=== PATIENT | male | born 2005 | race Two or more races ===

== ENCOUNTER 2025-01-17 23:29 | Emergency (ER) | payer MEDICAID, SELFPAY ==
[2025-01-17 23:36] VITALS: PULSE 110; RESP 30; O2SAT 100
[2025-01-17 23:48] VITALS: BP 153/76; PULSE 153; RESP 20; TEMP 37.2; O2SAT 100; BMI 34.0
[2025-01-18 00:16] VITALS: PULSE 85; RESP 18
--- NOTE | 2025-01-18 05:09 | PD.EDANX ---
ED Anxiety RME/HPI General Chief Complaint: Anxiety Stated Complaint: PANIC ATTACK Time Seen by Provider: 01/18/25 00:29 Arrival date/time: 01/17/25 23:29 19M with no significant PMH presents to ED with panic/anxiety attack because his significant other broke up with him. Patient denies SI/HI. Limitations: no limitations Related Data Previous Rx's ?Medication ?Instructions ?Recorded ibuprofen 800 mg tablet 800 mg PO TID PRN pain #30 tabs 06/25/21 Allergies Allergy/AdvReac Type Severity Reaction Status Date / Time No Known Allergies Allergy Verified 01/17/25 23:38 Review of Systems Review of Systems Systems Reviewed: All systems reviewed, normal except as documented Constitutional Constitutional: Reports system reviewed and no additional complaints, except as documented, Denies fever(s) and Denies headache(s) ENT Ears, Nose, Mouth, and Throat: Denies disequilibrium and Denies headache(s) Cardiovascular Cardiovascular: Reports system reviewed and no additional complaints, except as documented, Denies chest pain and Denies dyspnea Respiratory Respiratory: Reports system reviewed and no additional complaints, except as documented, Denies cough and Denies dyspnea Gastrointestinal Gastrointestinal: Reports system reviewed and no additional complaints, except as documented, Denies abdominal pain, Denies nausea and Denies vomiting Neurologic Neurologic: Reports system reviewed and no additional complaints, except as documented, Denies confusion, Denies disequilibrium and Denies headache(s) Psychiatric Psychiatric: Reports as per HPI, Reports anxiety, Denies confusion and Reports panic attacks Past Medical History Past Medical History CARDIAC: Negative Cardiac Disorders or Congestive Heart Failure RESPIRATORY: Negative Chronic Obstructive Pulmonary Disease (COPD) or Asthma GENITOURINARY: Negative Renal Disease ENDOCRINE: Negative Diabetes Mellitus Type 1 or Diabetes Mellitus Type 2 HEMATOLOGIC: Negative Sickle Cell Disease Social History SMOKING STATUS: Never smoker SUBSTANCE USE: does not use ED Exam General Limitations: Present no limitations General appearance: Present alert and in no apparent distress Head Head exam: Present atraumatic Eye Eye exam: Present normal appearance, PERRL and EOMI ENT ENT exam: Present normal exam, normal oropharynx and mucous membranes moist Neck Neck exam: Present normal inspection, full ROM and trachea midline Chest Chest inspection: Present normal inspection and symmetric chest wall rise Respiratory Respiratory exam: Present normal lung sounds bilaterally Cardiovascular Cardiovascular exam: Present regular rate, normal rhythm and normal heart sounds Abdominal Exam Abdominal exam: Present soft and normal bowel sounds Extremities Exam Extremities exam: Present normal inspection and full ROM Back Exam Back exam: Present normal inspection and full ROM Neurological Exam Neurological exam: Present alert, oriented X3 and CN II-XII intact Psychiatric Psychiatric exam: Present normal affect and normal mood Skin Skin exam: Present warm, dry, intact and normal color Course Quality Measures none Vital Signs Vital signs: Vital Signs Temperature 98.9 F 01/17/25 23:48 Pulse Rate 153 H 01/17/25 23:48 Respiratory Rate 20 01/17/25 23:48 Blood Pressure 153/76 H 01/17/25 23:48 Pulse Oximetry (%) 100 01/17/25 23:48 Oxygen Delivery Method Room Air 01/17/25 23:48 Anxiety MDM Narrative MDM Narrative: 19M with no significant PMH presents to ED with panic/anxiety attack because his significant other broke up with him. Patient denies SI/HI. Physical exam reveals RRR. Patient is afebrile, calm, and alert. Patient declines meds and wants to go home. Patient data External records reviewed:: [facility] previous records Clinical information provided by:: patient Social determinants that could affect healthcare access:: none Patient has the following chronic illnesses:: none How is presenting disease/condition affected by chronic disease/condition?: no chronic disease Evaluation data The following diagnostics were reviewed and interpreted by me:: other (specify) (none) Lab and/or radiology exams considered but not ordered:: not ordered Interpretation Summary: n/a Medications / Prescriptions Medications or Prescriptions considered but not ordered:: not ordered Medication administrations:: n/a Consultations Consultation(s) initiated? (list below): No Diagnosis Differential diagnosis anxiety: hyperventilation, panic disorder, acute anxiety and other (stress reaction) Most likely diagnosis given after review of the tests above:: stress reaction Admission Indicated Admission indicated?: not indicated Admission Request Was there a request for admission?: No Disposition Plan Disposition Plan: Discharge Discharge Attestation Discharge Attestation: The patient and all family members were given an opportunity to ask questions and understood the discharge instructions. Discharge instructions specifically effects, indications for sooner follow up or return to the emergency department, and the expected course of current diagnosis. Patient condition: Stable Discharge Plan Plan Patient Disposition: HOME (Self Care) Disposition Comment: Stable Prescriptions/Referrals Prescriptions/Med Rec: No Action ibuprofen 800 mg tablet 800 mg PO TID PRN (Reason: pain) Qty: 30 0RF Problem List Clinical Impression: Stress reaction Patient/Caregiver Discharge Instructions Education Materials: Your Body's Response to Anxiety Additional Instructions: Please follow-up with PCP within 24-48 hours and return immediately if symptoms worsen. Print Language: Spanish Stand Alone Forms: Patient Portal Info Letter PA/SURGICAL CODER Supervising Physician PA/SURGICAL CODER Supervising Physician: Dr. Hughes
== END 2025-01-18 01:26 | disposition home or self-care (01) ==
LOC: SERX 01-18 00:40
PROVIDERS: Emergency Provider Emergency Medicine; PCP Family Medicine
DX: F43.0 Acute stress reaction (principal)
CPT/HCPCS: 99281

== ENCOUNTER 2025-02-07 19:43 | Emergency (ER) | payer MEDICAID, SELFPAY ==
[2025-02-07 19:44] VITALS: BMI 31.6
--- NOTE | 2025-02-07 19:52 | XR_ITS ---
Examination: Knee, left , 3 views Technique: Knee AP, lateral, oblique 3 views Date and time of exam: February 07, 20252001 hrs. Indications: Football injury today, knee pain. Findings: Lateral patellar dislocation No definite acute fracture Moderate knee effusion Impression: Lateral patellar dislocation
[2025-02-07 20:15] VITALS: BP 132/85; PULSE 103; RESP 20; TEMP 36.7; O2SAT 97
--- NOTE | 2025-02-07 20:37 | XR_ITS ---
Examination: Knee, left , 3 views Technique: Knee AP, lateral, oblique 3 views Date and time of exam: February 07, [id number] hrs. Indications: Patellar dislocation on films February 07, 20252001 hrs. Findings: Persistent lateral subluxation of the patella No fracture Impression: Recommend axial view of the knee to confirm persistent lateral subluxation of the patella
[2025-02-07] MEDS: DIPHTH,PERTUSS(ACELL),TET VAC 0.5 ML SYR- ADULT IMi (20:56)
--- NOTE | 2025-02-08 01:41 | EDNOTE_ITS ---
Lower Extremity Injury RME/HPI General Chief Complaint: Extremity Injury, Lower Stated Complaint: LEFT KNEE PAIN WHILE PLAYING FOOTBALL Time Seen by Provider: 02/07/25 20:12 Arrival date/time: 02/07/25 19:43 19M with no significant PMH presents to ED with L knee pain after fall during football. Patient has not had a tetanus shot in the past 5 years. Limitations: no limitations Related Data Previous Rx's ?Medication ?Instructions ?Recorded ibuprofen 800 mg tablet 800 mg PO TID PRN pain #30 t abs 06/25/21 Allergies Allergy/AdvReac Type Severity Reaction Status Date / Time No Known Allergies Allergy Verified 01/17/25 23:38 Review of Systems Review of Systems Systems Reviewed: All systems reviewed, normal except as documented Constitutional Constitutional: Reports system reviewed and no additional complaints, except as documented, Denies fever(s) and Denies headache(s) ENT Ears, Nose, Mouth, and Throat: Denies disequilibrium and Denies headache(s) Cardiovascular Cardiovascular: Reports system reviewed and no additional complaints, except as documented, Denies chest pain and Denies dyspnea Respiratory Respiratory: Reports system reviewed and no additional complaints, except as documented, Denies cough and Denies dyspnea Gastrointestinal Gastrointestinal: Reports system reviewed and no additional complaints, except as documented, Denies abdominal pain, Denies nausea and Denies vomiting Musculoskeletal Musculoskeletal: Reports as per HPI and Reports arthralgias Integumentary/Breasts Skin/Breast: Reports as per HPI and Reports skin pain Neurologic Neurologic: Reports system reviewed and no additional complaints, except as documented, Denies confusion, Denies disequilibrium and Denies headache(s) Psychiatric Psychiatric: Denies confusion Past Medical History Past Medical History CARDIAC: Negative Cardiac Disorders or Congestive Heart Failure RESPIRATORY: Negative Chronic Obstructive Pulmonary Disease (COPD) or Asthma GENITOURINARY: Negative Renal Disease ENDOCRINE: Negative Diabetes Mellitus Type 1 or Diabetes Mellitus Type 2 HEMATOLOGIC: Negative Sickle Cell Disease Social History SMOKING STATUS: Never smoker SUBSTANCE USE: does not use ED Exam General Limitations: Present no limitations General appearance: Present alert and in no apparent distress Head Head exam: Present atraumatic Eye Eye exam: Present normal appearance, PERRL and EOMI ENT ENT exam: Present normal exam, normal oropharynx and mucous membranes moist Neck Neck exam: Present normal inspection, full ROM and trachea midline Chest Chest inspection: Present normal inspection and symmetric chest wall rise Respiratory Respiratory exam: Present normal lung sounds bilaterally Cardiovascular Cardiovascular exam: Present regular rate, normal rhythm and normal heart sounds Abdominal Exam Abdominal exam: Present soft and normal bowel sounds Expanded Upper Extremity Exam Elbow exam: Present full ROM and abrasion (L) Expanded Lower Extremity Exam Knee exam: Present tenderness (L) Back Exam Back exam: Present normal inspection and full ROM Neurological Exam Neurological exam: Present alert, oriented X3 and CN II-XII intact Psychiatric Psychiatric exam: Present normal affect and normal mood Skin Skin exam: Present warm, dry, intact and normal color Course Quality Measures none Orders Category Date Time Status Apply knee immobilizer NOW Care 02/07/25 21:31 Completed Crutches .NOW Care 02/07/25 20:13 Completed Wound Care NOW Care 02/07/25 20:46 Completed XR knee LT 3V Stat Exams 02/07/25 19:52 Completed XR knee LT 3V Stat Exams 02/07/25 20:37 Completed TET,DIP/PERT AC (Adult)-Tdap [Boostrix Adult (Tdap) Med 02/07/25 20:46 Discontinued Vacc] 0.5 ml IMI .ONCE ONE Vital Signs Vital signs: Vital Signs Temperature 98.1 F 02/07/25 20:15 Pulse Rate 103 H 02/07/25 20:15 Respiratory Rate 20 02/07/25 20:15 Blood Pressure 132/85 H 02/07/25 20:15 Pulse Oximetry (%) 97 02/07/25 20:15 Oxygen Delivery Method Room Air 02/07/25 20:15 O2 at 97% on RA and WNLs Extremity Injury, Lower MDM Narrative MDM Narrative:: 19M with no significant PMH presents to ED with L knee pain after fall during football. Separately, patient has a L elbow skin abrasion. Patient has not had a tetanus shot in the past 5 years. Physical exam reveals mild L knee tenderness. ROM somewhat limited. Mild skin abrasion on L elbow. No tenderness. ROM intact. Patient is afebrile, calm, and alert. XR reveals lateral patella dislocation. Reduction done. Repeat XR shows only subluxation. Patient states knee cap keeps popping in out and out. Given knee immobilizer, crutches, and corporate counsel. Wound cleaned/irrigated and bandaged. Tdap given. Patient data External records reviewed:: [facility] previous records Clinical information provided by:: patient Social determinants that could affect healthcare access:: none Patient has the following chronic illnesses:: none How is presenting disease/condition affected by chronic disease/condition?: no chronic disease Evaluation data The following diagnostics were reviewed and interpreted by me:: radiology exam(s) Lab and/or radiology exams considered but not ordered:: ordered Interpretation Summary: above Medications / Prescriptions Medications or Prescriptions considered but not ordered:: ordered Medication administrations:: Medication Administration History Discontinued Medications Diphtheria/Tetanus/Acell Pertussis (Diphth,Pertuss(Acell),Tet Vac 0.5 Ml Syr- Adult) 0.5 ml IMi .ONCE ONE Stop: 02/07/25 20:47 Last Admin: 02/07/25 20:56 Dose: 0.5 ml Documented By: KF above Consultations Consultation(s) initiated? (list below): No Diagnosis Extremity Injury, Lower Differential Diagnosis: ankle sprain and strain, acute internal derangement of knee, fracture of femur, fracture of hip, puncture wound of foot, fracture of toe, ankle fracture and other (skin abrasion) Most likely diagnosis given after review of the tests above:: skin abrasion internal derangement of knee Admission Indicated Admission indicated?: not indicated Admission Request Was there a request for admission?: No Disposition Plan Disposition Plan: Discharge Discharge Attestation Discharge Attestation: The patient and all family members were given an opportunity to ask questions and understood the discharge instructions. Discharge instructions specifically effects, indications for sooner follow up or return to the emergency department, and the expected course of current diagnosis. Patient condition: Stable Discharge Plan Plan Patient Disposition: HOME (Self Care) Disposition Comment: Stable Prescriptions/Referrals Prescriptions/Med Rec: No Action ibuprofen 800 mg tablet 800 mg PO TID PRN (Reason: pain) Qty: 30 0RF Referrals: Catarino Farias MD [Primary Care Provider] - In 1 week Problem List Clinical Impression: Acute internal derangement of knee, Abrasion of skin Patient/Caregiver Discharge Instructions Education Materials: How Your Knee Works, ED Abrasions Additional Instructions: Please follow-up with PCP within 24-48 hours and return immediately if symptoms worsen. If problem persists, recommend outpatient PT and/or MRI follow-up. In the meantime, rest, use ice/heat, and/or compression. Print Language: Estonian Stand Alone Forms: Patient Portal Info Letter GREG/LIZA Supervising Physician GREG/LIZA Supervising Physician: Dr. Finn
== END 2025-02-07 21:42 | disposition home or self-care (01) ==
PROVIDERS: Emergency Provider Emergency Medicine; PCP Family Medicine
DX: S83.015A Lateral dislocation of left patella, initial encounter (principal); S50.312A Abrasion of left elbow, initial encounter; Z23 Encounter for immunization; W19.XXXA Unspecified fall, initial encounter; Y93.61 Activity, american tackle football
CPT/HCPCS: 27560; 73562; 90471; 90715; 99283

== ENCOUNTER 2025-07-10 02:47 | Emergency (ER) | payer MEDICAID, SELFPAY ==
[2025-07-10 02:47] VITALS: BP 115/66; PULSE 70; RESP 18; TEMP 36.6; O2SAT 99
--- NOTE | 2025-07-10 03:00 | XR_ITS ---
Examination: CT brain head without contrast. 2-D sagittal coronal reconstructions Date and time of exam:July 10, 2025, 0425 hrs. Indications: Severe headache beginning yesterday. CTDI: vol (mGy):57.2 DLP: (mGycm):1213. Technique: Multiple CT axial sections of the brain have been obtained, 5 mm slice thickness. Contrast has not been administered. 2-D sagittal, coronal reconstructions have been obtained Low dose protocols were performed. One or more of the following dose reduction techniques were used; automated exposure control, adjustment of the mA and/or KV according to patient size, use of iterative reconstruction technique. Findings: No significant ventricular enlargement. Intra-axial or extra-axial hemorrhage density is not seen. No mass effect or midline shift Basal cisterns are not remarkable. Fourth ventricle is midline. Cranial vault intact. Impression: Negative for acute hemorrhage, mass effect or midline shift Advise clinical correlation and follow-up accordingly.
--- NOTE | 2025-07-10 03:00 | EDNOTE_ITS ---
ED Headache RME/HPI General Chief Complaint: Headache Stated Complaint: headache Time Seen by Provider: 07/10/25 03:27 Arrival date/time: 07/10/25 02:47 RME / HPI RME / HPI Narrative: See [facility] for Dr. Finn's HPI documentation. Related Data Previous Rx's ?Medication ?Instructions ?Recorded ibuprofen 800 mg tablet 800 mg PO TID PRN pain #30 t abs 06/25/21 acetaminophen 300 mg-codeine 30 mg 2 tab PO Q8H PRN pa in #10 tabs 07/10/25 tablet Allergies Allergy/AdvReac Type Severity Reaction Status Date / Time No Known Allergies Allergy Verified 01/17/25 23:38 Review of Systems Review of Systems Systems Reviewed: All systems reviewed, normal except as documented Past Medical History Past Medical History CARDIAC: Negative Cardiac Disorders or Congestive Heart Failure RESPIRATORY: Negative Chronic Obstructive Pulmonary Disease (COPD) or Asthma GENITOURINARY: Negative Renal Disease ENDOCRINE: Negative Diabetes Mellitus Type 1 or Diabetes Mellitus Type 2 HEMATOLOGIC: Negative Sickle Cell Disease Social History SMOKING STATUS: Former smoker SUBSTANCE USE: does not use ED Exam Narrative Physical exam: See [facility] for Dr. Finn's physical exam documentation. Course Quality Measures none Orders Category Date Time Status CT head/brain wo con Stat Exams 07/10/25 03:00 Taken ACETAMINOPHEN w/COD 300-30 [Tylenol w/Cod #3] Med 07/10/25 03:59 Discontinued 2 tab PO X1 ONE Vital Signs Vital signs: Vital Signs Temperature 97.8 F 07/10/25 02:47 Pulse Rate 70 07/10/25 02:47 Respiratory Rate 18 07/10/25 02:47 Blood Pressure 115/66 07/10/25 02:47 Pulse Oximetry (%) 99 07/10/25 02:47 Oxygen Delivery Method Room Air 07/10/25 02:47 Headache [facility] Narrative [facility] Narrative:: This section includes all my notes and documentations, including HPI, PE, and ED course. Marcos Finn MD HPI: 19yo male here with a headache for the last 24 hours. With right eye heaviness. Patient took Ibuprofen 800mg without any alleviation of symptoms. No nausea, vomiting, or photophobia. No other complaints reported. ROS: All negative except as documented in HPI. Physical Exam: General: Alert and oriented. No acute distress when remaining still. Eyes: Conjunctivae and lids clear. PERRL. EOMI. ENT: No nasal congestion. Pharynx normal. TM normal bilaterally. Neck: Supple. Heart: RRR. Lungs: No respiratory distress. Good air movement. No rhonchi, wheezing, rales. Abdomen: Soft and nontender. Skin: Warm and dry. Neuro: Alert and oriented X 3. Cranial nerves II to XII grossly normal. No peripheral motor deficits. I reviewed all diagnostic test results. My review of the CT head report is no acute findings. At this point, diagnoses include: Headache with unclear etiology. Treatment here included: Tylenol with Codeine Significant improvement Recommended more outpatient workup. Based on my best medical judgment, made decision no further evaluation or treatment indicated at this time. Patient understands and agrees to the discharge instructions customized and printed, see below. Discharge Instructions from Dr. Finn printed for you: 1. After evaluation, exact cause of your headache was not determined. 2. But there is no life-threatening condition. Such as stroke or brain tumor. 3. Tylenol with codeine for severe pain. 4. See a private doctor on 07/11/2025 for recheck. Ask for help with MRI imaging of the brain and referral to see neurologist. 5. Seek immediate medical care with worsening or with any concerns. Marcos Finn MD Patient data External records reviewed:: [facility] previous records (Per chart review, patient was seen here on 01/18/25 for stress reaction.) Clinical information provided by:: patient Social determinants that could affect healthcare access:: none Patient has the following chronic illnesses:: none How is presenting disease/condition affected by chronic disease/condition?: no chronic disease Evaluation data The following diagnostics were reviewed and interpreted by me:: radiology exam(s) Lab and/or radiology exams considered but not ordered:: none Interpretation Summary: My review of the head CT report is no acute findings. Medications / Prescriptions Medications or Prescriptions considered but not ordered:: none Medication administrations:: Medication Administration History Discontinued Medications Acetaminophen/Codeine Phosphate (Acetaminophen W/Cod 300-30 Tablet) 2 tab PO X1 ONE Stop: 07/10/25 04:00 Last Admin: 07/10/25 04:12 Dose: 2 tab Documented By: HILDA Tylenol with Codeine Consultations Consultation(s) initiated? (list below): No Diagnosis Differential diagnosis headache: migraine, tension headache and subarachnoid hemorrhage Most likely diagnosis given after review of the tests above:: Headache with unclear etiology Admission Indicated Admission indicated?: not indicated Explain why admission is indicated or not indicated:: With significant improvement and no condition needing emergent intervention, there was no indication for admission. Admission Request Was there a request for admission?: No Disposition Plan Disposition Plan: Discharge Discharge Attestation Discharge Attestation: The patient and all family members were given an opportunity to ask questions and understood the discharge instructions. Discharge instructions specifically effects, indications for sooner follow up or return to the emergency department, and the expected course of current diagnosis. Patient condition: Stable Discharge Plan Plan Patient Disposition: HOME (Self Care) Prescriptions/Referrals Prescriptions/Med Rec: New acetaminophen-codeine 300-30 mg tablet 2 tab PO Q8H MDD 6 PRN (Reason: pain) Qty: 10 0RF No Action ibuprofen 800 mg tablet 800 mg PO TID PRN (Reason: pain) Qty: 30 0RF Referrals: Herber Freeman PA-C [Primary Care Provider] - In 1 week Problem List Clinical Impression: Headache Patient/Caregiver Discharge Instructions Discharge Activity: activity as tolerated Education Materials: ED Headache, Tension Additional Instructions: Discharge Instructions from Dr. Finn printed for you: 1. After evaluation, exact cause of your headache was not determined. 2. But there is no life-threatening condition. Such as stroke or brain tumor. 3. Tylenol with codeine for severe pain. 4. See a private doctor on 07/11/2025 for recheck. Ask for help with MRI imaging of the brain and referral to see neurologist. 5. Seek immediate medical care with worsening or with any concerns. Print Language: Faroese Stand Alone Forms: Shaye Award Info., Work/School Release, Patient Portal Info Letter
[2025-07-10] MEDS: ACETAMINOPHEN w/COD 300-30 TABLET 2 TAB PO (04:12)
--- NOTE | 2025-07-10 04:49 | PRELIM_ITS ---
CT scan of the head without intravenous contrast (axial sections with sagittal and coronal reformats). July 10, 2025 0425 hours Clinical History: Headache Comparison: None Findings: There is no intracranial hemorrhage, extra-axial collection, mass, mass-effect or midline shift. There is good blandon-white differentiation. There is no CT evidence of acute large vascular territorial infarct. Ventricles are not enlarged or effaced. Visualized paranasal sinuses and tympanomastoid cavities are clear except for mild bilateral maxillary sinus mucosal thickening. The bony calvarium is intact. Impression: No intracranial hemorrhage, mass-effect or midline shift. No CT evidence of acute large vascular territorial infarct. Report Electronically Signed By: Phi Hernandez 07/10/2025 4:48:45 AM [EST]
== END 2025-07-10 05:06 | disposition home or self-care (01) ==
PROVIDERS: Emergency Provider Emergency Medicine; PCP Physician Assistant Medical
DX: R51.9 Headache, unspecified (principal)
CPT/HCPCS: 70450; 99283; A9270